=== PATIENT | female | born 1955 | race Caucasian/White ===

== ENCOUNTER 2018-06-20 13:54 | Outpatient (CLI) | payer MEDICARE, OTHER ==
--- NOTE | 2018-06-20 15:22 | RAD ---
LUMBAR SPINE TWO VIEWS: History: Back pain. Recent fall. FINDINGS: There is compression of the superior endplate of the L3 vertebra, slightly more pronounced to the rig ht of midline. This results in loss of central height 15-20%. Findings would suggest acute or subacut e injury, possibly related to patient's recent fall. No evidence of retropulsion. The posterior heigh t and alignment is preserved. The other lumbar vertebrae maintain height. Mild degenerative changes s een at all levels. IMPRESSION: Superior endplate compression of the L3 vertebra suggests acute or subacute injury. POS: [facility]
== END 2018-06-20 13:55 | disposition home or self-care (01) ==
LOC: SCSRAD 13:54
PROVIDERS: ATTEND Neurological Surgery
DX: S22.008A Other fracture of unspecified thoracic vertebra, initial encounter for closed fracture (principal); S32.039A Unspecified fracture of third lumbar vertebra, initial encounter for closed fracture
CPT/HCPCS: 72100